=== PATIENT | male | born 1995 | race Caucasian/White ===

== ENCOUNTER 2019-08-15 13:26 | Emergency (ER) | payer MEDICAID ==
--- NOTE | 2019-08-15 14:39 | EDM.PDOC ---
ED HPI GENERAL MEDICAL PROBLEM - General Chief Complaint: ENT Problem Stated Complaint: TONSILS Time Seen by Provider: 08/15/19 14:33 Source of Information: Reports: Patient, Old Records, RN Notes Reviewed History Limitations: Reports: No Limitations - History of Present Illness INITIAL COMMENTS - FREE TEXT/NARRATIVE: 24-year-old gentleman presents emergency department a complaint of sore throat, he was in about 3 weeks ago with a tonsillitis was treated with Rocephin and amoxicillin states he feels he has not improved at all he has not any fevers sore throat continues difficulties to swallow no shortness of breath or chest pain. 3 weeks ago he had trauma after falling off a ladder CT scan of the head and abdomen pelvis was done as well as an EGD because he was vomiting blood, this became available to me after I reviewed the chart record. Throat Pain Score (Numeric/FACES): 7 - Related Data Allergies Allergy/AdvReac Type Severity Reaction Status Date / Time No Known Allergies Allergy Verified 08/15/19 14:09 Home Meds: Home Meds NK [No Known Home Meds] 07/26/19 [History] Past Medical History - Past Health History Medical/Surgical History: Denies Medical/Surgical History Social & Family History - Tobacco Use Smoking Status *Q: Current Every Day Smoker Years of Tobacco use: 1 Packs/Tins Daily: 5 - Caffeine Use Caffeine Use: Reports: Coffee - Recreational Drug Use Recreational Drug Use: No ED ROS ENT - Review of Systems Review Of Systems: See Below Constitutional: Reports: Weakness, Fatigue. Denies: Fever, Chills HEENT: Reports: Throat Pain, Throat Swelling Respiratory: Reports: No Symptoms Cardiovascular: Reports: No Symptoms GI/Abdominal: Reports: No Symptoms ED EXAM, ENT - Physical Exam Exam: See Below Text/Narrative:: General: Male, not in any distress, alert and oriented x3 HEENT: head is atraumatic normocephalic, eyes pupils equal round reactive to light, sclera clear no conjunctivitis appreciated. Ears tympanic membranes clear and de jesus landmarks and light reflex are present bilaterally canals are clear. Nose no septal deviation, nares are clear, no blood present. Mouth mucosa is moist and pink mild amount of erythema he does have some exudate appreciated on the left tonsillar pillar noted in soft palate, tongue is midline uvula is midline, dentition is intact. Neck: Supple no thyromegaly no tracheal deviation. Nodes: Cervical nodes subclavicular nodes nontender no palpable lymphadenopathy noted. Lungs: clear to auscultation bilaterally with symmetrical respirations, no adventitious noise appreciated. CV: Regular rate and rhythm S1 and S2 appreciated no murmurs rubs or gallops noted. Abdomen: Soft, nontender, no palpable masses or organomegaly appreciated, no distention no guarding bowel sounds are present, . . Course - Vital Signs Last Recorded V/S: Last Vital Signs Temp 98.5 F 08/15/19 14:08 Pulse 84 08/15/19 14:08 Resp 22 H 08/15/19 14:08 BP 135/65 08/15/19 14:08 Pulse Ox 99 08/15/19 14:08 - Orders/Labs/Meds Orders: Active Orders 24 hr Category Date Time Status CULTURE STREP A CONFIRMATION [] Stat Lab 08/15/19 14:49 Results STREP SCRN A RAPID W CULT CONF [RM] Stat Lab 08/15/19 14:49 Results Labs: Laboratory Tests 08/15/19 08/15/19 08/15/19 Range/Units 14:45 14:45 14:45 WBC 6.3 (4.5-11.0) K/uL RBC 4.14 L (4.30-5.90) M/uL Hgb 12.1 (12.0-15.0) g/dL Hct 36.9 L (40.0-54.0) % MCV 89 (80-98) fL MCH 29 (27-31) pg MCHC 33 (32-36) % Plt Count 360 (150-400) K/uL Neut % (Auto) 53 (36-66) % Lymph % (Auto) 35 (24-44) % Hart % (Auto) 8 H (2-6) % Eos % (Auto) 3 (2-4) % Baso % (Auto) 1 (0-1) % Sodium 137 L (140-148) mmol/L Potassium 3.7 (3.6-5.2) mmol/L Chloride 100 (100-108) mmol/L Carbon Dioxide 28 (21-32) mmol/L Anion Gap 12.7 (5.0-14.0) mmol/L BUN 17 (7-18) mg/dL Creatinine 1.0 (0.8-1.3) mg/dL Est Cr Clr Drug Dosing 115.36 mL/min Estimated GFR (MDRD) > 60 (>60) Glucose 95 (74-106) mg/dL Calcium 9.0 (8.5-10.1) mg/dL Monoscreen Negative (NEGATIVE) Meds: Medications Discontinued Medications Generic Name Dose Route Start Last Admin Trade Name Freq PRN Reason Stop Dose Admin Cyclobenzaprine HCl 10 mg 08/15/19 17:00 08/15/19 17:26 Flexeril PO 08/15/19 17:01 10 mg ONETIME ONE Administration Departure - Departure Time of Disposition: 17:29 Disposition: Home, Self-Care 01 Condition: Fair Clinical Impression: Sprain of cervical neck Qualifiers: Encounter type: initial encounter Qualified Code(s): S13.9XXA - Sprain of joints and ligaments of unspecified parts of neck, initial encounter - Discharge Information Referrals: PCP,None [Primary Care Provider] - Forms: ED Department Discharge Additional Instructions: Use ibuprofen or Tylenol as needed for pain control, try the Flexeril as needed for muscle spasm, please followup with your primary care provider in 3-5 days if not better, please call return to the emergency department with worsening of symptoms. Sepsis Event Note - Evaluation Sepsis Screening Result: No Definite Risk - Focused Exam Vital Signs: Vital Signs Temp Pulse Resp BP Pulse Ox 08/15/19 14:08 98.5 F 84 22 H 135/65 99 08/15/19 13:51 98.5 F 84 22 H 135/65 99 Date Exam was Performed: 08/15/19 Time Exam was Performed: 17:28 - My Orders Last 24 Hours: My Active Orders 08/15/19 14:49 CULTURE STREP A CONFIRMATION [RM] Stat STREP SCRN A RAPID W CULT CONF [RM] Stat - Assessment/Plan Last 24 Hours: My Active Orders 08/15/19 14:49 CULTURE STREP A CONFIRMATION [RM] Stat STREP SCRN A RAPID W CULT CONF [RM] Stat Plan: Assessment Acuity = acute Site and laterality = cervical strain neck Etiology = secondary trauma Manifestations = none Location of injury = Home Lab values = CT scan shows muscle spasm, CBC BMP unremarkable mono was negative rapid strep is negative culture is pending Plan He had good relief with the Flexeril provided in the emergency department discharged home with Flexeril 10 mg p.o. 3 times daily PRN total #30 have him follow-up with his primary care in 3 to 5 days if no improvement This note was dictated using [employer] voice recognition software please call with any questions on syntax or grammar.
--- NOTE | 2019-08-15 16:57 | CRLCT ---
INDICATION: Neck pain. History of trauma 3 weeks ago. COMPARISON: COMPARISON DATE TECHNIQUE: CT examination of the cervical spine is performed without contrast using spiral technique. 2 mm thick axial, sagittal and coronal reconstructions were made. Please note that all CT scans at this facility use dose modulation, iterative reconstruction, and/or weight-based dosing when appropriate to reduce radiation dose to as low as reasonably achievable. FINDINGS: : There is straightening of the cervical spine which may be the result of muscular spasm or positioning for the examination. There is mild tilting of the head toward the left with mild curvature of the cervical spine convex towards the right, suggesting mild left-sided muscular spasm. There is no sign of fracture or subluxation. The cervical vertebral bodies and intervertebral discs are normal in height and are in anatomic alignment. There is no sign of prevertebral soft tissue swelling. The airway structures are normal in appearance. The visualized skull base is normal in appearance. Brain detail is extremely limited by the use of bone technique, but no gross abnormality is seen. The apices of the lungs are clear. IMPRESSION: Straightening of the cervical spine and tilting of the head towards the left, suggesting mild muscular spasm. No sign of acute osseous injury. Please note that all CT scans at this facility use dose modulation, iterative reconstruction, and/or weight-based dosing when appropriate to reduce radiation dose to as low as reasonably achievable. Dictated by Peter Henrandez MD @ Aug 15 2019 4:53PM Signed by Dr. Peter Hernandez @ Aug 15 2019 4:55PM
[2019-08-15] MEDS ORDERED: Cyclobenzaprine 10 MG Tab PO ONE (17:00)
== END 2019-08-15 17:37 | disposition home or self-care (01) ==
LOC: JP.ED 13:26
DX: S13.9XXA Sprain of joints and ligaments of unspecified parts of neck, initial encounter (principal); F17.210 Nicotine dependence, cigarettes, uncomplicated; X58.XXXA Exposure to other specified factors, initial encounter
CPT/HCPCS: 36415; 72125; 80048; 85025; 86308; 87081; 87880; 99283; A9270

== ENCOUNTER 2022-03-29 09:07 | Emergency (ER) | payer MEDICAID ==
[2022-03-29] MEDS ORDERED: Ketorolac 30 MG/ML SDV IVPUSH ONE (10:10)
[2022-03-29] MEDS ORDERED: HYDROmorphone 0.5 MG/0.5 ML Syringe IVPUSH ONE (10:10)
[2022-03-29 10:54] LABS: ESTIMATED GFR 95 mL/min (>60)
== END 2022-03-29 14:50 ==
LOC: JP.ED 09:07
DX: M79.A21 Nontraumatic compartment syndrome of right lower extremity (principal); M79.81 Nontraumatic hematoma of soft tissue; Z79.899 Other long term (current) drug therapy
CPT/HCPCS: 36415; 72195; 73718; 80053; 82550; 85025; 96374; 96375; 99284; J1170; J1885; 99285

== ENCOUNTER 2023-02-20 18:30 | Emergency (ER) | payer MEDICAID ==
[2023-02-20] MEDS ORDERED: Bacitracin Oint 1 GM U/D Packet TOP ONE (19:51)
[2023-02-20] MEDS ORDERED: Lidocaine 1% 5 ML VIAL INJECT ONE (19:51)
[2023-02-20] MEDS ORDERED: ceFAZolin 1 GM Vial IM ONE (19:52)
== END 2023-02-20 21:19 | disposition home or self-care (01) ==
LOC: JP.ED 18:30
DX: S68.522A Partial traumatic transphalangeal amputation of left thumb, initial encounter (principal); F17.210 Nicotine dependence, cigarettes, uncomplicated; W27.0XXA Contact with workbench tool, initial encounter
CPT/HCPCS: 11760; 73140; 96372; 99284; J0690

== ENCOUNTER 2024-03-29 18:26 | Emergency (ER) | payer MEDICAID ==
[2024-03-29] MEDS: Bacitracin Oint 1 GM U/D Packet TOP ONE (18:57)
[2024-03-29] MEDS: Ketorolac 30 MG/ML SDV IM ONE (18:57)
[2024-03-29] MEDS: ceFAZolin 1 GM Vial IM ONE (18:58)
[2024-03-29] MEDS: Lidocaine 1% 5 ML VIAL INJECT ONE ×2 (18:58→19:15)
== END 2024-03-29 21:18 | disposition home or self-care (01) ==
LOC: JP.ED 18:26
DX: S62.645B Nondisplaced fracture of proximal phalanx of left ring finger, initial encounter for open fracture (principal); S61.211A Laceration without foreign body of left index finger without damage to nail, initial encounter; S61.217A Laceration without foreign body of left little finger without damage to nail, initial encounter; S61.213A Laceration without foreign body of left middle finger without damage to nail, initial encounter; F17.210 Nicotine dependence, cigarettes, uncomplicated; Z86.16 Personal history of COVID-19; Z79.899 Other long term (current) drug therapy; W29.3XXA Contact with powered garden and outdoor hand tools and machinery, initial encounter
CPT/HCPCS: 12037; 73130; 96372; 99283; J0690; J1885; 12007

== ENCOUNTER 2024-04-11 19:25 | Emergency (ER) | payer MEDICAID | END 2024-04-11 20:20 | disposition home or self-care (01) | LOC: JP.ED 19:25 | DX: S61.215D Laceration without foreign body of left ring finger without damage to nail, subsequent encounter (principal); Z48.00 Encounter for change or removal of nonsurgical wound dressing; F17.210 Nicotine dependence, cigarettes, uncomplicated; Z79.899 Other long term (current) drug therapy; Z86.16 Personal history of COVID-19; X58.XXXD Exposure to other specified factors, subsequent encounter | CPT/HCPCS: 99283 ==

== ENCOUNTER 2025-03-22 21:03 | Emergency (ER) | payer MEDICAID | END 2025-03-22 21:41 | disposition home or self-care (01) | LOC: JP.ED 21:03 | DX: T62.0X1A Toxic effect of ingested mushrooms, accidental (unintentional), initial encounter (principal); F17.200 Nicotine dependence, unspecified, uncomplicated; Z86.16 Personal history of COVID-19 | CPT/HCPCS: 99284 ==